=== PATIENT | male | born 1985 | race Caucasian/White ===

== ENCOUNTER 2023-04-12 15:28 | Emergency (ER) | payer BC ==
[~2023-04-12] VITALS: Ht 172.7 cm; Wt 72.2 kg
[2023-04-12 15:47] VITALS: BP 139/83; PULSE 57; TEMP 97.7; O2SAT 99
[2023-04-12] MEDS ORDERED: ketorolac tromethamine 15mg/ml inj. IM ONE (17:40)
[2023-04-12] MEDS ORDERED: NAPR-56 PO (17:42)
[2023-04-12] MEDS ORDERED: CYCL-1 PO (17:42)
[2023-04-12 17:51] VITALS: RESP 18
== END 2023-04-12 17:57 | disposition home or self-care (01) ==
LOC: ER 15:29
DX: R68.84 Jaw pain (principal)
CPT/HCPCS: 96372; 99283; J1885